=== PATIENT | female | born 2000 | race Caucasian/White ===

== ENCOUNTER 2018-02-11 13:50 | Outpatient (CLI) | payer OTHER ==
[2018-02-11 14:58] VITALS: BP 126/69; PULSE 99; RESP 18; TEMP 97.7
--- NOTE | 2018-02-24 12:32 | P.MSEPDOC ---
Presenting Problems - Arrival Data Date of Arrival on Unit: 02/11/18 Time of Arrival on Unit: 13:50 Mode of Transport: Wheelchair - Complaint Comment: congestion, contractions Medical History - Information : 1 Para: 0 Term: 0 : 0 Abortions: Spontaneous or Elective: 0 Number of Living Children: 0 - Gestational Age Gestational Age by CLEO (wks/days): 30 Weeks and 3 Days - History Complications: Smoker Review of Systems - Review of Systems Constitutional: No problems Breast: No problems ENT: No problems Cardiovascular: No problems Respiratory: No problems Gastrointestinal: No problems Genitourinary: No problems Musculoskeletal: No problems Neurological: No problems Skin: No problems Vital Signs - Temperature Temperature: 97.7 F Temperature Source: Temporal Artery Scan - Pulse Right Brachial Pulse Rate: 99 Pulse Assessment Method: Automatic Cuff - Respirations Respiratory Rate: 18 Oxygen Delivery Method: Room Air - Blood Pressure Right Arm Blood Pressure: 126/69 Blood Pressure Mean: 88 Blood Pressure Source: Automatic Cuff Medical Screen Scoring (Pre) - Cervical Exam Dilation: 0 cm = 0 - Uterine Contractions Frequency: N/A Duration: N/A Intensity: N/A - Maternal Vital Signs Maternal Temperature: N/A Maternal Blood Pressure: N/A Signs of Preeclampsia: N/A Maternal Respirations: N/A - Pain Assessment Pain Location and Character: Generalized Pain Scale Used: Numeric (1 - 10) Pain Intensity: 5 Pain Description: *Acute Pain Frequency: Occasional Pain Behavior: None Exhibited Pain Aggravating Factors: None - Assessment Baseline FHR: 145 Heart Rate - NICHD Category: Category I (Normal) = 0 NST: Reactive Position: N/A - Total Score Total Score (Pre): 0 - Level of Risk Level of Risk: N/A Physician Notification (Pre) - Physician Notified Physician Notified Date: 02/11/18 Physician Notified Time: 14:22 Physician/Practitioner Notifed:: rylan Spoke With: rylan New Order Received: Yes - Notification Comment Comment: reported pt visit, DOM, contractions since noon yesterday and congestion. reported reassuring fht, no contractions. would like cervix checked, if closed pt may been seen in ED if she desires for congestion Disposition - Disposition OB Disposition: Discharge to home Discharge Date: 02/11/18 Discharge Time: 14:45 I agree with the RN Medical Screening Exam: Yes Risk & Benefit of care provided described in d/c instruction: Yes Diagnosis: RELATED CONDITIONS, UNSPECIFIED, THIRD TRIMESTER
== END 2018-02-11 14:45 | disposition home or self-care (01) ==
LOC: FBPOP 13:50
PROVIDERS: ATTEND Obstetrics & Gynecology
DX: O26.93 Pregnancy related conditions, unspecified, third trimester (principal); O99.333 Smoking (tobacco) complicating pregnancy, third trimester
CPT/HCPCS: 59025; G0463; 99213